=== PATIENT | female | born 1975 | race Caucasian/White ===

== ENCOUNTER 2022-07-29 19:30 | Observation (INO) ==
[2022-07-30 03:56] LABS: Lymphocytes % 3.7 %
[2022-07-30 03:58] LABS: Basophils # 0.1 K/mcL (0.0-0.2); Basophils % 0.3 %; Eosinophils % 0.1 %; Hematocrit 39.1 % (35.3-44.9); Hemoglobin 11.5 g/dL (11.5-15.4); Immature Granulocytes % 0.9 % (0-4); Immature Platelets 8.3 % (1.1-6.1); Lymphocytes # 0.7 K/mcL (0.6-4.6); Mean Corpuscular HGB Conc 29.4 g/dL (31.6-35.5); Mean Corpuscular Hemoglobin 20.3 pg (28.0-33.3); Mean Corpuscular Volume 69.1 fL (83.0-100.0); Monocytes % 5.7 %; Platelet Count 192 K/mcL (140-400); Red Blood Count 5.66 M/mcL (3.82-4.97); Red Cell Distribution Width 18.2 % (11.5-14.5); Segmented Neutrophils % 89.3 %; White Blood Count 17.9 K/mcL (4.3-11.1)
[2022-07-30 04:07] LABS: Bacteria,Urine Many per hpf (None-Few); Bilirubin,Urine Negative (Negative); Blood,Urine Large (Negative); Clarity,Urine Ex.Turbid (Clear); Color,Urine Yellow (Yellow); Glucose,Urine (UA) >=1000 mg/dL (Normal); Ketones,Urine 80 mg/dL (Negative); Leukocyte Esterase,Urine Large (Negative); Mucus,Urine Moderate per lpf (None-Few); Nitrite,Urine Negative (Negative); Protein,Urine >=300 mg/dL (Neg-Trace); RBC,Urine 50-100 per hpf (0-3); Specific Gravity,Urine 1.017 (1.010-1.025); Squamous Epithelial Cell,Urine Few per hpf (None-Few); Urobilinogen,Urine Normal (Normal); WBC,Urine TNTC per hpf (0-3)
[2022-07-30 04:13] LABS: VBG HCO3 21 mEq/L (21-27); VBG PCO2 40 mmHg (41-51); VBG PH 7.34 pH Units (7.32-7.42); VBG PO2 50 mmHg (25-50)
[2022-07-30 04:15] LABS: Calcium 9.7 mg/dL (8.6-10.3); Potassium 4.5 mEq/L (3.5-5.1)
[2022-07-30 05:18] LABS: Platelet Estimate Normal (Normal)
[2022-07-30] MEDS ORDERED: cefTRIAXone 1,000 MG in 0.9 % Sodium Chloride 10 ML IVP ONE ×2 (06:53→08:00)
[2022-07-30] MEDS ORDERED: Ondansetron 4 MG/2 ML VIAL IVP ONE (06:53)
[2022-07-30] MEDS ORDERED: 0.9 % Sodium Chloride 1,000 ML IVC ONE ×2 (06:53→08:21)
[2022-07-30] MEDS ORDERED: Insulin Human Regular 3 UNIT in 0.9 % Sodium Chloride 10 ML IV ONE (07:15)
[2022-07-30] MEDS ORDERED: Ondansetron 4 MG/2 ML VIAL ONE (07:28)
[2022-07-30] MEDS ORDERED: 0.9 % Sodium Chloride 1,000 ML ONE (07:28)
[2022-07-30 07:35] LABS: Albumin 3.3 g/dL (3.5-5.7); Albumin/Globulin Ratio 1.1 (1.1-2.2); Bilirubin,Direct 0.1 mg/dL (0.0-0.2); Bilirubin,Indirect 0.7 mg/dL (0.0-1.0); Bilirubin,Total 0.8 mg/dL (0.3-1.0); Globulin 3.1 g/dL (2.4-3.5); Total Protein 6.4 g/dL (6.4-8.9)
[2022-07-30] MEDS ORDERED: 0.9 % Sodium Chloride 500 ML IVC ONE (08:21)
[2022-07-30] MEDS ORDERED: Naloxone 0.4 MG/ML INJ IVP PRN (10:30)
[2022-07-30] MEDS ORDERED: Ondansetron 4 MG/2 ML VIAL IVP PRN (10:30)
[2022-07-30] MEDS ORDERED: *HR* Labetalol 20 MG/4 ML SYRINGE IVP PRN (10:32)
[2022-07-30] MEDS ORDERED: *HR* HYDROcodone/Acet 5/325 mg TABLET PO PRN (10:34)
[2022-07-30] MEDS ORDERED: *HR* OxyCODONE Immed Rel 5 MG TABLET PO PRN (10:34)
[2022-07-30 15:51] LABS: % Iron Saturation 3 % (15-50); Iron 10 mcg/dL (50-170); Transferrin 275 mg/dL (203-362)
[2022-07-30] MEDS: *HR* Heparin 5,000 UNIT/ML VIAL SQ SCH (18:04)
[2022-07-30] MEDS: REQUIP PO SCH (20:14)
[2022-07-30] MEDS: Acetaminophen 325 MG TABLET PO PRN (20:14)
[2022-07-30] MEDS ORDERED: D5% in Water 1,000 ML IVC PRN (20:53)
[2022-07-30] MEDS ORDERED: Dextrose Gel 15 GM/37.5 ML TUBE PO PRN ×2 (20:53)
[2022-07-30] MEDS ORDERED: *HR* Dextrose 50 % in Water (Syg) 50 ML SYRINGE IVP PRN (20:53)
[2022-07-30] MEDS: Insulin LISPRO 300 UNITS/3 ML VIAL SUBQ SCH (21:21)
[2022-07-31 05:14] LABS: Basophils % 0.2 %; Eosinophils % 0.2 %; Immature Granulocytes % 0.8 % (0-4); Lymphocytes % 3.2 %; Monocytes % 9.6 %; Red Cell Distribution Width 16.9 % (11.5-14.5)
[2022-07-31 05:15] LABS: Hematocrit 30.7 % (35.3-44.9); Hemoglobin 9.1 g/dL (11.5-15.4); Immature Platelets 6.5 % (1.1-6.1); Lymphocytes # 0.4 K/mcL (0.6-4.6); Mean Corpuscular HGB Conc 29.6 g/dL (31.6-35.5); Mean Corpuscular Hemoglobin 19.9 pg (28.0-33.3); Mean Corpuscular Volume 67.2 fL (83.0-100.0); Mean Platelet Volume 11.4 fL (9.4-12.4); Monocytes # 1.2 K/mcL (0.0-1.3); Neutrophils # 10.9 K/mcL (1.6-8.9); Platelet Count 152 K/mcL (140-400); Red Blood Count 4.57 M/mcL (3.82-4.97); White Blood Count 12.7 K/mcL (4.3-11.1)
[2022-07-31 05:33] LABS: Calcium 8.4 mg/dL (8.6-10.3); Potassium 4.1 mEq/L (3.5-5.1)
[2022-07-31 05:47] LABS: Platelet Estimate Normal (Normal)
[2022-07-31 05:48] LABS: Microcytosis Present (Not Present)
[2022-07-31] MEDS: *HR* Heparin 5,000 UNIT/ML VIAL SQ SCH ×2 (05:53→16:20)
[2022-07-31] MEDS ORDERED: Iopamidol - 370 500 ML MLS IVP ONE (07:26)
[2022-07-31] MEDS: cefTRIAXone 1,000 MG in Water for inj. (sterile) 10 ML IVP SCH (08:27)
[2022-07-31] MEDS: amLODIPine 5 MG TABLET PO SCH (08:27)
[2022-07-31] MEDS: Aspirin Enteric Coated 81 MG Tablet PO SCH (08:27)
[2022-07-31] MEDS: Insulin LISPRO 300 UNITS/3 ML VIAL SUBQ SCH ×4 (08:35→20:53)
[2022-07-31] MEDS: Insulin DETEMIR 100 UNIT/ML X5UNITS SUBQ SCH ×2 (08:41→20:54)
[2022-07-31] MEDS: 0.9 % Sodium Chloride 1,000 ML IVC SCH ×2 (08:41→17:26)
[2022-07-31] MEDS: Acetaminophen 325 MG TABLET PO PRN (17:26)
[2022-07-31] MEDS ORDERED: Acetaminophen IV 500 MG/50 ML BAG IVPB ONE (17:33)
[2022-07-31] MEDS ORDERED: 0.9 % Sodium Chloride 500 ML IVC ONE (17:34)
[2022-07-31] MEDS: REQUIP PO SCH (20:53)
[2022-08-01 00:22] LABS: Adenovirus Not Detected (Not Detect); Bordetella Pertussis Not Detected (Not Detect); Chlamydophila pneumoniae Not Detected (Not Detect); Coronavirus 229E Not Detected (Not Detect); Coronavirus HKU1 Not Detected (Not Detect); Coronavirus NL63 Not Detected (Not Detect); Coronavirus OC43 Not Detected (Not Detect); Human Metapneumovirus Not Detected (Not Detect); Human Rhinovirus/Enterovirus Not Detected (Not Detect); Influenza A Subtype 2009 H1 Not Detected (Not Detect); Influenza B Not Detected (Not Detect); Mycoplasma pneumoniae Not Detected (Not Detect); Parainfluenza Virus 1 Not Detected (Not Detect); Parainfluenza Virus 2 Not Detected (Not Detect); Parainfluenza Virus 3 Not Detected (Not Detect); Parainfluenza Virus 4 Not Detected (Not Detect); Respiratory Syncytial Virus Not Detected (Not Detect); SARS-CoV-2 Not Detected (Not Detect)
[2022-08-01 04:12] LABS: Estimated Average Glucose 269 mg/dl
[2022-08-01] MEDS: *HR* Heparin 5,000 UNIT/ML VIAL SQ SCH (05:48)
[2022-08-01 08:34] LABS: Basophils % 0.3 %; Eosinophils % 0.3 %; Lymphocytes % 5.7 %; Mean Corpuscular HGB Conc 31.1 g/dL (31.6-35.5); Mean Corpuscular Hemoglobin 20.5 pg (28.0-33.3); Platelet Count 126 K/mcL (140-400)
[2022-08-01 08:36] LABS: Hematocrit 27.3 % (35.3-44.9); Hemoglobin 8.5 g/dL (11.5-15.4); Immature Granulocytes % 0.9 % (0-4); Lymphocytes # 0.6 K/mcL (0.6-4.6); Mean Corpuscular Volume 65.9 fL (83.0-100.0); Mean Platelet Volume 10.6 fL (9.4-12.4); Monocytes % 9.4 %; Neutrophils # 9.2 K/mcL (1.6-8.9); Red Blood Count 4.14 M/mcL (3.82-4.97); Segmented Neutrophils % 83.4 %
[2022-08-01] MEDS: Insulin LISPRO 300 UNITS/3 ML VIAL SUBQ SCH (08:51)
[2022-08-01] MEDS: cefTRIAXone 1,000 MG in Water for inj. (sterile) 10 ML IVP SCH (08:52)
[2022-08-01 08:54] LABS: Albumin 2.8 g/dL (3.5-5.7); Albumin/Globulin Ratio 0.9 (1.1-2.2); Bilirubin,Total 0.5 mg/dL (0.3-1.0); Potassium 3.8 mEq/L (3.5-5.1); Total Protein 5.8 g/dL (6.4-8.9)
[2022-08-01] MEDS: Aspirin Enteric Coated 81 MG Tablet PO SCH (08:54)
[2022-08-01] MEDS: amLODIPine 5 MG TABLET PO SCH (08:54)
[2022-08-01 08:56] LABS: Platelet Estimate Slight Decrease (Normal)
[2022-08-01 08:57] LABS: Microcytosis Present (Not Present)
[2022-08-01] MEDS: Insulin DETEMIR 100 UNIT/ML X5UNITS SUBQ SCH (09:04)
[2022-08-01 10:48] VITALS: BP 129/83; PULSE 111; TEMP 98.9; O2SAT 97
== END 2022-08-01 12:58 | disposition home or self-care (01) ==
LOC: EMEROOARM 19:30 → 2ANU 19:30 → EMEROOARM 23:38 → SUATTDRO 07-30 11:27 → 2ANU 07-30 13:22
PROVIDERS: ADMIT Student in an Organized Health Care Education/Training Program; ATTEND Internal Medicine